=== PATIENT | female | born 1980 | race Caucasian/White ===

== ENCOUNTER → 2017-07-06 14:15 | Outpatient (CLI) | payer MEDICAID, SELFPAY ==
[2017-07-06 17:45] LABS: T4 Free Direct 0.88 ng/dL (0.76-1.46); Thyroid Stim Hormone (TSH) 2.98 uIU/mL (0.358-3.74)
[2017-07-11 16:09] LABS: Testosterone, Free 0.47 ng/dL (0.10-0.85); Testosterone, Total 22 ng/dL (8-48)
[2017-07-12 12:28] LABS: Testosterone, % Free 2.14 % (0.50-2.80)
== END ==
PROVIDERS: Visit Provider Obstetrics & Gynecology
DX: L70.9 Acne, unspecified (principal); R63.5 Abnormal weight gain
CPT/HCPCS: 36415; 84402; 84403; 84439; 84443